=== PATIENT | female | born 1985 | race Caucasian/White ===

== ENCOUNTER → 2016-07-25 | Outpatient (CLI) | payer OTHER ==
[~2016-07-25] MED LIST: BUPR8MIS SL
== END | disposition home or self-care (01) ==
LOC: C.RDSM 14:00
PROVIDERS: ATTEND Orthopaedic Surgery Sports Medicine
DX: M25.531 Pain in right wrist (principal)

== ENCOUNTER → 2016-08-28 | Outpatient (CLI) | payer OTHER ==
--- NOTE | 2016-08-28 16:37 | MAMMOGRAPHY REPORT ---
ULTRASOUND OF LEFT BREAST: 08/28/2016 CLINICAL HISTORY: 31-year-old woman with a palpable lump in the 1:00 left breast that she initially noticed and her doctor confirmed on physical exam. It is mobile; approximately the size of a bluebe rry. No skin erythema, thickening or nipple discharge. No known family history of breast cancer. COMPARISON: No prior exams were available for comparison. FINDINGS: Real-time high-resolution ultrasound was performed in the area of palpable lump pointed ou t by the patient (1:00 left breast, 1-2 cm from the nipple). On palpation there is a discrete firm 1 cm mobile mass. On ultrasound, there is a lobulated circumscribed hypoechoic solid mass measuring 10.2 x 6.7 x 13.2 mm. No significant hypervascularity. Although this most likely represents a jena ign fibroadenoma, definitive characterization with tissue sampling is recommended. IMPRESSION: ACR BI-RADS CATEGORY 4A: LOW SUSPICION FOR MALIGNANCY - FOLLOW-UP RECOMMENDED 1. Ultrasound guided core needle biopsy is recommended for a solid palpable mass in the 1:00 left br east, which probably represents a benign fibroadenoma. These results and recommendations were discussed with the patient at the time of the exam. She tent atively scheduled the biopsy prior to leaving our department. Could consider postprocedure mammogra ms given patient's age is 31, to ensure biopsy marker clip deployment and exclude the possibility of other suspicious disease. Alia Hugo M.D. ay/:08/28/2016 16:10:40 Odd Bundle Worker: Christine GIRON)[place]), [facility] letter sent: Abnormal 4/5 BI-RADS Code: ACR BI-RADS Category 4A: Low Suspicion For Malignancy
== END | disposition home or self-care (01) ==
LOC: C.MAMM 10:18
PROVIDERS: ATTEND Family Medicine
DX: N63 Unspecified lump in breast (principal)

== ENCOUNTER → 2016-09-04 | Outpatient (CLI) | payer OTHER ==
[~2016-09-04] MED LIST changes: +CETI10TA84 PO; +GABA1CAP5 PO; +IBUP-1427 PO
--- NOTE | 2016-09-04 13:21 | Discharge Instructions ---
Discharge Instructions Procedure Procedure Date: Sep 04, 2016. Reason for visit: Left Mass. Discharge Discharge Date: Sep 04, 2016. Discharge Diagnosis: post left breast ultrasound guided core biopsy Instructions Activity Recommendations: Additional Limitations (see below) Return to School/Work: no limitations Recommended Home Diet: No Limitations Provider Instructions: ACTIVITY RECOMMENDATIONS: * No lifting, pushing, pulling or exercising the affected side for three days. RETURN TO SCHOOL/WORK: * You may return to work/school after the procedure, but do not perform any strenuous activities for 24 to 48 hours. MEDICATIONS: * Tylenol (two 325 mg) every four to six hours if needed for mild pain (if not allergic to Tylenol). DIET: * Resume previous diet. SPECIAL CARE INSTRUCTIONS: * Keep biopsy site dry for 24 hours. May shower after 24 hours, but do not soak (bathe) incision. * May remove Tegaderm (plastic patch) tomorrow AFTER showering. * Leave the steri-strips on for one week. Allow the steri-strips to fall off by themselves. If not off after one week, you may remove them. You may place a Bandaid crosswise over the strips, if desired. * Apply ice 10 minutes on and 10 minutes off as needed. * Wear a bra at bedtime to sleep more comfortably for 2-3 days. * Your referring physician should have the results after approximately 5 to 7 business days. * Call for unusual bleeding, fever, drainage, etc or if you have any questions call [phone] during normal business hours or after hours call Dr Hugo, . FOLLOW UP VISIT: Follow-up with Referring Physician as scheduled. Allergies Coded Allergies: Isopropyl Alcohol (Verified Allergy, Unknown, RASH, 01/26/16) Sarah Lyman Recommendations: Call your doctor if: * Temperature above 101 degrees * Pain not relieved by pain medicine ordered * There is increased drainage or redness from any incision * You have any unanswered questions or concerns. Your Doctors Instructions noted above were prepared by provider Alia Hugo. Patient Signature Section: Patient Instructions Signature Page Fridarolf Alce Patient (or Guardian) Signature/Date: I have read and understand the instructions given to me by my caregivers. Caregiver/RN/Doctor Signature/Date: The above-named patient and/or guardian has received patient instructions on this date. + Original Patient Signature Page (only) stays with chart. Please make copy for patient.
--- NOTE | 2016-09-04 15:43 | MAMMOGRAPHY REPORT ---
ULTRASOUND GUIDED BIOPSY LEFT BREAST: 09/04/2016 CLINICAL HISTORY: Solid palpable oval 13.2 mm mass in the 1:00 left breast. Patient presents for ul trasound-guided core needle biopsy. COMPARISON: Prior left breast ultrasound dated 08/28/2016. PATIENT CONSENT: The procedure, risks and benefits were discussed with the patient and informed writ ten consent was obtained. Specific risks to this procedure include: bleeding, infection, puncture of adjacent structure, nontarget biopsy, sampling error, middle allergy and medication reaction. PROCEDURE DESCRIPTION: A time out was performed and the left breast was agreed as the site of biopsy . The skin was prepped and draped in the usual sterile fashion. The solid palpable mass in the 1:00 left breast was chosen as the target for biopsy. Subcutaneous and intraparenchymal 1% buffered lidoc raegan was administered as local anesthesia. A skin incision was made. Through the incision, 3 sample s were taken with a 14 gauge Achieve biopsy device. A metallic marker was placed at the biopsy site. Hemostasis was achieved after manual compression. The patient tolerated the procedure well and ther e was no immediate complication. The samples were sent to the pathology department in appropriately labeled container. Postprocedure mammography was deferred given the patient's age less than 30. IMPRESSION: ULTRASOUND GUIDED BIOPSY Status post ultrasound-guided core needle biopsy of an indeterminate solid palpable mass in the 1:00 left breast, with biopsy marker placed at the site. The patient will receive notification of the biopsy results from her referring physician. Alia Hugo M.D. ay/:09/04/2016 14:22:11 Package Line Operator: Francesca GIRON)([place]), [facility]
== END | disposition home or self-care (01) ==
LOC: C.MAMM 12:43
PROVIDERS: ATTEND Family Medicine
DX: D24.2 Benign neoplasm of left breast (principal)

== ENCOUNTER → 2016-10-23 | Outpatient (CLI) | payer OTHER | END | disposition home or self-care (01) | LOC: C.RDSM 14:55 | PROVIDERS: ATTEND Orthopaedic Surgery Sports Medicine | DX: M54.2 Cervicalgia (principal) ==

== ENCOUNTER → 2016-10-31 | Outpatient (CLI) | payer OTHER ==
--- NOTE | 2016-10-31 14:50 | DIAGNOSTIC IMAGING REPORT ---
MRI OF THE CERVICAL SPINE WITHOUT CONTRAST CLINICAL HISTORY: Neck pain and bilateral upper extremity numbness. COMPARISON: Cervical spine radiographs October 23, 2016. TECHNIQUE: Utilizing a 1.5 Trang magnet and dedicated coil, multiplanar, multiecho imaging of the cervical spine was performed without IV contrast. FINDINGS: Alignment of the cervical spine is anatomic. Vertebral body heights are maintained. There is no marrow replacement. Cervical cord signal and caliber are normal. Visualized portions of the posterior fossa are unremarkable. There is no intracanalicular mass or fluid collection. Paravertebral soft tissues are normal. C2-C3: The central canal and the neural foramen are patent. C3-C4: The central canal and neural foramen are patent. C4-C5: The central canal and neural foramen are patent. C5-C6: The central canal and neural foramen are patent. C6-C7: The central canal and right neural foramen are patent. There is mild left neural foraminal stenosis due to uncovertebral hypertrophy. C7-T1: The central canal and neural foramen are patent. IMPRESSION: 1. Essentially normal MRI of the cervical spine. No disc herniations. Patent central canal. 2. Mild left neural foraminal stenosis at C6-C7. 3. Normal cervical cord signal and caliber. Electronically signed by: Ethan Ballesteros M.D. 10/31/2016 2:49 PM Dictated Date/Time: 10/31/2016 2:45 PM
== END | disposition home or self-care (01) ==
LOC: C.MRIBC 13:49
PROVIDERS: ATTEND Orthopaedic Surgery Sports Medicine
DX: M54.2 Cervicalgia (principal)

== ENCOUNTER → 2016-11-13 | Outpatient (CLI) | payer OTHER ==
[~2016-11-13] MED LIST changes: +GADAVIST IV PRN
--- NOTE | 2016-11-13 13:38 | DIAGNOSTIC IMAGING REPORT ---
MRI OF THE BRAIN WITHOUT AND WITH IV CONTRAST CLINICAL HISTORY: ANESTHESIA OF SKIN procedures COMPARISON STUDY: No previous studies for comparison. TECHNIQUE: Utilizing a 1.5 Trang magnet and dedicated coil, multiplanar, multiecho imaging of the brain was performed pre and postcontrast administration. IV administration of 8.5 mL of Gadavist contrast was uneventful. FINDINGS: Diffusion-weighted images show no acute ischemic event. Signal characteristics of the cerebellar as well as cerebral hemispheres are unremarkable. The ventricular system is midline. Internal auditory canals are symmetric. Postcontrast images show no evidence for abnormal postcontrast enhancement. IMPRESSION: Normal study Electronically signed by: David Yanez M.D. 11/13/2016 1:36 PM Dictated Date/Time: 11/13/2016 1:32 PM
== END | disposition home or self-care (01) ==
LOC: C.MRIBC 12:29
PROVIDERS: ATTEND Family Medicine
DX: R20.0 Anesthesia of skin (principal)

== ENCOUNTER 2017-03-16 12:05 | Emergency (ER) | payer OTHER ==
[~2017-03-16] VITALS: Ht 177.8 cm; Wt 70.7 kg
[~2017-03-16 12:05] MED LIST changes: -CETI10TA84 PO; -GABA1CAP5 PO; -GADAVIST IV PRN; -IBUP-1427 PO
[2017-03-16 12:12] VITALS: TEMP 36.8; Ht 177.8 cm; Wt 70.7 kg
[2017-03-16] MEDS ORDERED: IBUP-1427 PO (12:42)
[2017-03-16] MEDS ORDERED: CETI10TA84 PO (12:42)
[2017-03-16] MEDS ORDERED: GABA1CAP5 PO (12:42)
[2017-03-16] MEDS ORDERED: XYLOCAINE 1%/SOD BICARB 20 ML VIAL INFIL ONE (13:00)
[2017-03-16] MEDS ORDERED: DIPHTHERIA/TETANUS/PERTUSSIS 0.5 ML SYR/VIAL IM. ONE (13:00)
--- NOTE | 2017-03-16 13:39 | EMERGENCY ROOM VISIT NOTE ---
ED Visit Note First contact with patient: 12:17 CHIEF COMPLAINT: Left thumb laceration at work today HISTORY OF PRESENT ILLNESS: Patient is a [id number] 31-year-old white female who accidentally cut the left thumb on a knife at work just prior to arrival. The bleeding stopped shortly after the injury and there is no weakness or numbness the thumb. REVIEW OF SYSTEMS: Review of systems as per HPI. All other systems reviewed were negative. At least 6 systems reviewed. PMH: Electronic medical records are reviewed and summarized as above/below. See Problem List. Last tetanus was 9 years ago. SOCIAL HISTORY: Patient lives at home. Smoker. PHYSICAL EXAM: Vital Signs: Reviewed Nurse's notes. There is a 1 cm long laceration on the finger pad of the left thumb thumb. The edges are gaping apart. There is no foreign material in the wound and it looks clean. There is no active bleeding. No deep structures such as tendons or nerves are seen in the base of the wound. Extension, flexion and abduction and adduction of the thumb is full and strong. Sensation to pain and light touch is intact. EMERGENCY DEPARTMENT COURSE: Using sterile technique, saline and Betadine cleansing, and 1% lidocaine anesthesia, the laceration was irrigated with saline and then repaired with 3, 5-0 nylon sutures. Bacitracin and a light dressing were applied. Wound care measures were discussed. Patient was discharged in good condition. Patient's tetanus is updated. There is no evidence for nerve or tendon injury. Medication reconciliation: I attest that I have personally reviewed the patient' s current medication list. Blood pressure screening : Patient was found to have normal blood pressure on screening and does not require follow-up. Problem List Medical Problems: (1) Acute bronchitis Status: Resolved (2) Dysmenorrhea Status: Resolved (3) Finger laceration Status: Resolved (4) Knee injury Status: Resolved (5) Odontalgia Status: Resolved (6) Work related injury Status: Resolved Surgical Problems: (1) H/O section Status: Resolved Current/Historical Medications Scheduled Buprenorphine Hcl-Naloxone Hcl (Suboxone 8-2 Mg), 0.5 TAB SL BID Cetirizine (Zyrtec), 10 MG PO DAILY Gabapentin (Neurontin), 1 CAP PO PRN Ibuprofen Tab (Motrin), 1 TAB PO PRN Allergies Coded Allergies: Isopropyl Alcohol (Verified Allergy, Unknown, RASH, 10/14/17) Vital Signs Date Time Temp Pulse Resp B/P (MAP) Pulse Ox O2 Delivery O2 Flow Rate FiO2 03/16/17 13:58 95 16 122/79 99 03/16/17 12:12 36.8 95 20 134/84 97 Room Air Medications Administered Medications (Trade) Dose Ordered Sig/Mary Route Start Time Stop Time Status Last Admin Dose Admin Diphtheria/ Pertussis/Tetanus Vacc (Adacel Inj) 0.5 ml ONCE ONCE IM. 03/16/17 13:00 03/16/17 13:01 DC 03/16/17 13:27 0.5 ML Lidocaine HCl (Buffered Lidocaine 1% Inj) 20 ml ONE ONCE INFIL 03/16/17 13:00 03/16/17 13:01 DC 03/16/17 13:29 20 ML Departure Information Impression Primary Impression: Laceration of left thumb Additional Impression: Work related injury Referrals No Doctor, Assigned (PCP) Patient Instructions My [facility] Additional Instructions Keep wound clean and dry. Do not allow any crusting or dried blood to accumulate on sutures. If this occurs, use a 1:1 solution of hydrogen peroxide/ water on a Q-tip to clean the wound. Use an antibiotic ointment for 3-4 days, then let wound dry. Suture removal in 10-12 days. Return sooner for any signs of infection (increasing redness, swelling, drainage). Ice and elevate for swelling and pain. Ibuprofen 600 mg and Tylenol 1000 mg every 6 hrs for pain. Problem Qualifiers
[2017-03-16 13:58] VITALS: BP 122/79; PULSE 95; O2SAT 99
== END 2017-03-16 14:01 | disposition home or self-care (01) ==
LOC: C.EDB 12:08 → C.EDD 14:01
DX: S61.012A Laceration without foreign body of left thumb without damage to nail, initial encounter (principal); W26.0XXA Contact with knife, initial encounter; Y99.0 Civilian activity done for income or pay; F17.200 Nicotine dependence, unspecified, uncomplicated; Z23 Encounter for immunization

== ENCOUNTER 2017-03-17 10:48 | Emergency (ER) | payer OTHER ==
[~2017-03-17] VITALS: Ht 177.8 cm; Wt 69.0 kg
[~2017-03-17 10:48] MED LIST changes: +CETI10TA84 PO; +GABA1CAP5 PO; +IBUP-1427 PO
[2017-03-17 11:01] VITALS: BP 126/86; PULSE 95; TEMP 36.8; O2SAT 95; Ht 177.8 cm; Wt 69.0 kg
--- NOTE | 2017-03-17 11:14 | EMERGENCY ROOM VISIT NOTE ---
ED Visit Note First contact with patient: 11:04 CHIEF COMPLAINT: "One of my stitches fell out this morning." HPI: Patient is a [id number] 31-year-old white female who returns to the emergency department requesting reevaluation of the left thumb wound. She cut herself on a knife at work yesterday. Wound was repaired by myself. Patient return to work today. 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 She states the wound started to bleed. She was sent here by work. She denies any pain. No redness or discharge from the wound. REVIEW OF SYSTEMS: Review of systems as per HPI. All other systems reviewed were negative. At least 6 systems reviewed. PMH: Reviewed and unchanged from visit yesterday. SOCIAL HISTORY: Patient lives at home. PHYSICAL EXAM: Vital Signs: Reviewed Nurse's notes. MENTAL STATUS: Alert, oriented, and not in distress. SKIN: Examination of the finger pad of the left thumb show some dried blood over the wound edge, with 2 intact sutures. There is no gaping. No redness, warmth or induration. Range of motion is full. EMERGENCY DEPARTMENT COURSE: The patient was reassured. She still has 2 intact sutures and wound is still well approximated. She was educated on wound care measures to help facilitate healing. She did not require any additional intervention at this time. She was given the day off today and doesn't work again for another 4 days. Medication reconciliation: I attest that I have personally reviewed the patient' s current medication list. Blood pressure screening : Patient was found to have normal blood pressure on screening and does not require follow-up. Problem List Medical Problems: (1) Acute bronchitis Status: Resolved (2) Dysmenorrhea Status: Resolved (3) Finger laceration Status: Resolved (4) Knee injury Status: Resolved (5) Odontalgia Status: Resolved (6) Work related injury Status: Resolved Surgical Problems: (1) H/O section Status: Resolved Current/Historical Medications Scheduled Buprenorphine Hcl-Naloxone Hcl (Suboxone 8-2 Mg), 0.5 TAB SL BID Cetirizine (Zyrtec), 10 MG PO DAILY Gabapentin (Neurontin), 1 CAP PO PRN Ibuprofen Tab (Motrin), 1 TAB PO PRN Allergies Coded Allergies: Isopropyl Alcohol (Verified Allergy, Unknown, RASH, 03/17/17) Vital Signs Date Time Temp Pulse Resp B/P (MAP) Pulse Ox O2 Delivery O2 Flow Rate FiO2 03/17/17 11:01 36.8 95 18 126/86 95 Room Air Departure Information Impression Primary Impression: Encounter for wound re-check Referrals No Doctor, Assigned (PCP) Patient Instructions My [facility] Additional Instructions Keep wound clean and dry. Do not allow any crusting or dried blood to accumulate on sutures. If this occurs, use a 1:1 solution of hydrogen peroxide/ water on a Q-tip to clean the wound. Use an antibiotic ointment for 3-4 days, then let wound dry. Suture removal in 10-12 days. Return sooner for any signs of infection (increasing redness, swelling, drainage). Ice and elevate for swelling and pain. Ibuprofen 600 mg and Tylenol 1000 mg every 6 hrs for pain. May return to work at next scheduled shift. Please limit activities where the hand would get wet. Cover with bandage and multiple gloves if necessary to keep the finger dry.
== END 2017-03-17 11:28 | disposition home or self-care (01) ==
LOC: C.EDB 10:49 → C.EDD 11:28
DX: Z51.89 Encounter for other specified aftercare (principal); S61.012D Laceration without foreign body of left thumb without damage to nail, subsequent encounter; W26.0XXD Contact with knife, subsequent encounter; Y99.0 Civilian activity done for income or pay

== ENCOUNTER → 2017-03-28 | Outpatient (CLI) | payer OTHER ==
--- NOTE | 2017-03-28 14:21 | DIAGNOSTIC IMAGING REPORT ---
L KNEE 1 OR 2 VIEWS ROUTINE HISTORY: 32 years-old Female LEFT KNEE PAIN acute left knee pain status post fall COMPARISON: Left knee radiographs 11/21/2014 TECHNIQUE: 2 views of the left knee FINDINGS: No acute fracture, dislocation or significant degenerative changes. Small joint effusion with mild soft tissue swelling about the knee. No opaque foreign body. IMPRESSION: Small joint effusion and mild soft tissue swelling without acute fracture or dislocation. The above report was generated using voice recognition software. It may contain grammatical, syntax or spelling errors. Electronically signed by: Bharathi Gutierrez M.D. 03/28/2017 2:20 PM Dictated Date/Time: 03/28/2017 2:18 PM
== END | disposition home or self-care (01) ==
LOC: C.RAD1850 14:05
PROVIDERS: ATTEND Family Medicine
DX: M25.562 Pain in left knee (principal); M25.462 Effusion, left knee